=== PATIENT | male | born 1980 | race Caucasian/White ===

== ENCOUNTER → 2024-02-02 | Outpatient (REF) | payer BC | LOC: RAD 15:19 | PROVIDERS: ATTEND Internal Medicine | DX: M25.552 Pain in left hip (principal) ==

== ENCOUNTER 2025-02-07 11:57 | Inpatient (IN) | payer BC ==
[~2025-02-07] VITALS: Ht 182.9 cm; Wt 123.4 kg
[2025-02-07 12:51] LABS: BASOPHILS % 0.4 % (0.0-1.0); EOSINOPHILS % 5.0 % (0.0-6.0); LYMPHOCYTES % 26.8 % (18.0-39.1); MONOCYTES % 6.3 % (4.4-11.3); NEUTROPHILS % 60.9 % (38.7-80.0); RED CELL DISTRIBUTION WIDTH 12.0 % (11.7-14.4)
[2025-02-07] MEDS: Morphine 4mg INJECTION 4 MG/ML INJ IV STA (12:55)
[2025-02-07] MEDS: SODIUM CHLORIDE 0.9% 1000ML 1,000 ML IV STA (12:55)
[2025-02-07 13:20] LABS: EST GLOMERULAR FILTRATION RATE 104.0 ML/MIN (>=60)
[2025-02-07 15:15] VITALS: PULSE 99; RESP 16; TEMP 98.2
[2025-02-07] MEDS ORDERED: ONDANSETRON HCL INJ 2MG/ML 2ML 2 MG/ML VIAL IV PRN (15:15)
[2025-02-07] MEDS ORDERED: AMLODIPINE-OLM1 EAC3 PO (17:29)
[2025-02-07] MEDS ORDERED: MELOXICAM10 MG (17:29)
[2025-02-07] MEDS ORDERED: CLONIDINE HCL0.1 MG PO (17:34)
[2025-02-07] MEDS ORDERED: OMEPRAZOLE20 MG (17:34)
[2025-02-07] MEDS ORDERED: CLARITIN10 MG PO (17:34)
[2025-02-07] MEDS ORDERED: PLAVIX75 MG PO (17:34)
[2025-02-07] MEDS ORDERED: MULTI-VITAMIN1 EACH PO (17:34)
[2025-02-07] MEDS ORDERED: OMEGA-31000 MG PO (17:34)
[2025-02-07] MEDS ORDERED: ATORVASTATIN CA20 MG PO (17:34)
[2025-02-07] MEDS ORDERED: ASCORBIC ACID500 M2 PO (17:34)
[2025-02-07 17:36] VITALS: BP 131/89; O2SAT 97
[2025-02-07 17:39] VITALS: BP 131/89; O2SAT 97
[2025-02-07] MEDS: SODIUM CHLORIDE 0.9% 1000ML 1,000 ML IV SCH (18:16)
[2025-02-07] MEDS: Morphine 4mg INJECTION 4 MG/ML INJ IV PRN (18:18)
[2025-02-07 18:27] VITALS: BP 152/88
[2025-02-07 19:45] VITALS: BP 161/87; PULSE 94; RESP 18; TEMP 97.9; O2SAT 98
[2025-02-07] MEDS ORDERED: IOPAMIDOL 370 MG/ML 100 ML INFUS..BTL INJ ONE (19:54)
[2025-02-07 23:42] VITALS: BP 134/72; PULSE 88; RESP 18; TEMP 97.7; O2SAT 98
[2025-02-08] VITALS (8 sets, daily range): BP systolic 132–158; BP diastolic 77–97; PULSE 80–97; RESP 16–20; TEMP 97.4–98.2; O2SAT 95–99
[2025-02-08 05:18] LABS: BASOPHILS % 0.5 % (0.0-1.0); EOSINOPHILS % 6.1 % (0.0-6.0); LYMPHOCYTES % 34.5 % (18.0-39.1); MONOCYTES % 8.0 % (4.4-11.3); NEUTROPHILS % 50.3 % (38.7-80.0); RED CELL DISTRIBUTION WIDTH 12.0 % (11.7-14.4)
[2025-02-08 05:48] LABS: EST GLOMERULAR FILTRATION RATE 106.0 ML/MIN (>=60)
[2025-02-08] MEDS ORDERED: FENTANYL CITRATE/PF 100MCG/2 ML INJ ONE ×2 (09:53→12:05)
[2025-02-08] MEDS ORDERED: ROCURONIUM BROMIDE 1 ML IV ONE ×2 (09:53→11:17)
[2025-02-08] MEDS ORDERED: SEVOFLURANE INHAL SOLN 250 ML PEN BTL ONE (09:53)
[2025-02-08] MEDS ORDERED: PROPOFOL IV EMULSION 10 MG/ML 20 ML VIAL ONE (09:53)
[2025-02-08] MEDS ORDERED: ACETAMINOPHEN 1000 MG/100 ML 100 ML IV ONE (09:53)
[2025-02-08] MEDS ORDERED: LIDOCAINE HCL 2% LOCAL INJ 5 ML SDV VIAL INJ ONE (09:53)
[2025-02-08] MEDS ORDERED: MIDAZOLAM HCL 2 MG/2 ML VIAL ONE (09:53)
[2025-02-08] MEDS ORDERED: DEXAMETHASONE SOD PHOS INJ 4 MG/ML SDV ONE (10:56)
[2025-02-08] MEDS ORDERED: ONDANSETRON HCL INJ 2MG/ML 2ML 2 MG/ML VIAL ONE (10:56)
[2025-02-08] MEDS ORDERED: KETOROLAC TROMETHAMINE 30 MG/ML VIAL ONE (10:56)
[2025-02-08] MEDS ORDERED: PIPERACILLIN/TAZOBACTAM 3.375 GM VIAL ONE (11:05)
[2025-02-08] MEDS ORDERED: SUGAMMADEX SODIUM 200 MG/2 ML VIAL IV ONE (11:40)
[2025-02-08] MEDS ORDERED: ACETAMINOPHEN 1000 MG/100 ML IV PRN (12:15)
[2025-02-08] MEDS: FENTANYL CITRATE/PF 100MCG/2 ML INJ ONE (12:36)
[2025-02-08] MEDS: HYDROCODONE/APAP 7.5MG-325MG 1 EA TAB PO PRN (15:18)
[2025-02-09 03:33] VITALS: BP 128/98; PULSE 80; RESP 18; TEMP 97.8; O2SAT 98
[2025-02-09 05:39] LABS: BASOPHILS % 0.2 % (0.0-1.0); EOSINOPHILS % 0.4 % (0.0-6.0); LYMPHOCYTES % 12.6 % (18.0-39.1); MONOCYTES % 5.3 % (4.4-11.3); NEUTROPHILS % 81.0 % (38.7-80.0); RED CELL DISTRIBUTION WIDTH 11.9 % (11.7-14.4)
[2025-02-09 06:09] LABS: EST GLOMERULAR FILTRATION RATE 111.0 ML/MIN (>=60)
[2025-02-09 08:48] VITALS: BP 145/88; PULSE 85; RESP 20; TEMP 98; O2SAT 99
[2025-02-09 16:06] VITALS: BP 132/93; PULSE 89; RESP 20; TEMP 97.8; O2SAT 99
[2025-02-09 19:43] VITALS: BP 173/90; PULSE 94; RESP 18; TEMP 97.9; O2SAT 99
== END 2025-02-09 20:38 | disposition home or self-care (01) | DRG 419 ==
LOC: ER 12:31 → ERHOLD 15:05 → MED/SURG 16:45
PROVIDERS: ADMIT Surgery; ATTEND Surgery
PROC: 0FT44ZZ Resection of Gallbladder, Percutaneous Endoscopic Approach (ICD-10-PCS; principal; 2025-02-08 10:44)
DX: K81.9 Cholecystitis, unspecified (principal); I10 Essential (primary) hypertension; E78.5 Hyperlipidemia, unspecified; F17.200 Nicotine dependence, unspecified, uncomplicated
CPT/HCPCS: 36415; 74177; 76705; 80053; 83690; 85025; 88304; 99284; C1766; G0378; J1100; J1885; J2003; J2250; J2270; J2405; J2543; J7030; Q9967